=== PATIENT | female | born 1945 | race Caucasian/White ===

== ENCOUNTER → 2017-05-09 | Outpatient (CLI) | payer OTHER ==
[~2017-05-09] MED LIST: ALLEVE; CELEBREX200 MG PO; MULTI VITAMINS1 TA1 PO; TYLENOL ES500 M1 PO; ZANTAC 150150 MG PO
== END | disposition home or self-care (01) ==
LOC: MA 12:52
PROC: BG44ZZZ Ultrasonography of Thyroid Gland (ICD-10-PCS; principal; 2017-05-09)
PROC: BH02ZZZ Plain Radiography of Bilateral Breasts (ICD-10-PCS; 2017-05-09)
DX: Z12.31 Encounter for screening mammogram for malignant neoplasm of breast (principal); I10 Essential (primary) hypertension; E01.0 Iodine-deficiency related diffuse (endemic) goiter
CPT/HCPCS: G0202

== ENCOUNTER → 2017-05-24 | Outpatient (CLI) | payer OTHER | END | disposition home or self-care (01) | LOC: MA 12:32 | PROC: BH01ZZZ Plain Radiography of Left Breast (ICD-10-PCS; principal; 2017-05-24) | DX: N64.89 Other specified disorders of breast (principal); Z12.31 Encounter for screening mammogram for malignant neoplasm of breast | CPT/HCPCS: G0206 ==

== ENCOUNTER 2017-06-09 08:00 | Day surgery (SDC) | payer OTHER ==
[~2017-06-09] VITALS: Ht 160 cm; Wt 72.6 kg
[2017-06-09 08:27] VITALS: BP 133/87
[2017-06-09 11:27] VITALS: BP 135/69
== END 2017-06-09 11:55 | disposition home or self-care (01) ==
LOC: GI 08:00 → OR 10:00 → GI 10:00
PROVIDERS: Internal Medicine Gastroenterology
PROC: 0DJD8ZZ Inspection of Lower Intestinal Tract, Via Natural or Artificial Opening Endoscopic (ICD-10-PCS; principal; 2017-06-09 10:30)
DX: Z12.11 Encounter for screening for malignant neoplasm of colon (principal); K57.30 Diverticulosis of large intestine without perforation or abscess without bleeding; K64.8 Other hemorrhoids; Z68.29 Body mass index [BMI] 29.0-29.9, adult
CPT/HCPCS: 45378; J1200; J1610; J2250; J2310; J3010; J3490